=== PATIENT | female | born 1975 | race Caucasian/White ===

== ENCOUNTER 2017-08-26 17:34 | Emergency (ER) | payer OTHER ==
[2017-08-26] MEDS ORDERED: ASPIRIN 81 MG TABLET, CHEWABLE PO ONE (18:15)
--- NOTE | 2017-08-26 18:18 | EKG REPORT ---
SEVERITY:- NORMAL ECG - SINUS RHYTHM : Confirmed by: Emerson Cook MD 26-Aug-2017 18:18:04
--- NOTE | 2017-08-26 18:19 | ER Document Report ---
ED Medical Screen (RME) - General Chief Complaint: Chest Pain Stated Complaint: CHEST PAIN Time Seen by Provider: 08/26/17 18:07 Notes: 42-year-old female here with complaints of chest pain shortness of breath ongoing for the past few days. She states that the shortness of breath is especially worse with exertion. Chest pain is not worse with exertion. She states that she feels like her thyroid is "out of whack". She states that she broke her tailbone a while back and feels like it is broken again and is requesting an x-ray. TRAVEL OUTSIDE OF THE [place] IN LAST 30 DAYS: No - Related Data Allergies/Adverse Reactions: acetaminophen [From Tylenol-Codeine #3] Allergy (Verified 08/26/17 17:35) codeine [From Tylenol-Codeine #3] Allergy (Verified 08/26/17 17:35) tetracycline Allergy (Verified 08/26/17 17:35) Past Medical History - Social History Chew tobacco use (# tins/day): No Frequency of alcohol use: None Drug Abuse: None Renal/ Medical History: Denies: Hx Peritoneal Dialysis Musculoskeltal Medical History: Reports Hx Arthritis Past Surgical History: Reports: Hx Cholecystectomy Physical Exam - Vital signs Vitals: Temp Pulse Resp BP Pulse Ox 98.6 F 86 16 108/61 94 08/26/17 17:54 08/26/17 17:54 08/26/17 17:54 08/26/17 17:54 08/26/17 17:54 Course - Vital Signs Vital signs: Temp Pulse Resp BP Pulse Ox 98.6 F 86 16 108/61 94 08/26/17 17:54 08/26/17 17:54 08/26/17 17:54 08/26/17 17:54 08/26/17 17:54
[2017-08-26 18:53] LABS: ABSOLUTE EOSINOPHILS # (AUTO) 0.1 10^3/uL (0.0-0.6); ABSOLUTE LYMPHOCYTES (AUTO) 1.6 10^3/uL (0.5-4.7); ABSOLUTE MONOCYTES (AUTO) 0.4 10^3/uL (0.1-1.4); ABSOLUTE NEUT (AUTO) 2.7 10^3/uL (1.7-8.2); BASOPHILS % (AUTO) 0.6 % (0-2); EOSINOPHILS % (AUTO) 1.1 % (0-6); HEMATOCRIT 40.2 % (36.0-47.0); HEMOGLOBIN 13.4 g/dL (12.0-15.5); LYMPHOCYTES % (AUTO) 33.5 % (13-45); MEAN CORPUSCULAR HGB CONC 33.3 g/dL (32.0-36.0); MEAN CORPUSCULAR VOLUME 90 fl (80-97); MONOCYTES % (AUTO) 8.8 % (3-13); PLATELET COUNT 298 10^3/uL (150-450); RED BLOOD COUNT 4.47 10^6/uL (3.72-5.28); RED CELL DISTRIBUTION WIDTH 13.8 % (11.5-14.0); TOTAL CELLS COUNTED % (AUTO) 100 %; WHITE BLOOD COUNT 4.8 10^3/uL (4.0-10.5)
[2017-08-26 19:20] LABS: ANION GAP 11 (5-19); BLOOD UREA NITROGEN 10 mg/dL (7-20); CALCIUM 10.2 mg/dL (8.4-10.2); CARBON DIOXIDE 30 mmol/L (22-30); CHLORIDE 100 mmol/L (98-107); GLUCOSE 82 mg/dL (75-110); MAGNESIUM 1.8 mg/dL (1.6-2.3); PHOSPHORUS 4.1 mg/dL (2.5-4.5); POTASSIUM 4.1 mmol/L (3.6-5.0); SODIUM 140.6 mmol/L (137-145)
--- NOTE | 2017-08-26 20:57 | RADIOLOGY REPORT (SQ) ---
EXAM DESCRIPTION: SACRUM AND COCCYX COMPLETED DATE/TIME: 08/26/2017 8:49 pm REASON FOR STUDY: eval for sacral fx COMPARISON: None. NUMBER OF VIEWS: Three views. TECHNIQUE: AP, lateral, and tilt views of the sacrum and coccyx. LIMITATIONS: None. FINDINGS: MINERALIZATION: Normal. BONES: No acute fracture or dislocation. No worrisome bone lesions. SOFT TISSUES: No soft tissue swelling. No foreign body. OTHER: No other significant finding. IMPRESSION: NEGATIVE STUDY OF THE SACRUM AND COCCYX. TECHNICAL DOCUMENTATION: JOB ID: [id number] [employer]- All Rights Reserved
--- NOTE | 2017-08-26 20:57 | RADIOLOGY REPORT (SQ) ---
EXAM DESCRIPTION: CHEST PA/LAT COMPLETED DATE/TIME: 08/26/2017 8:49 pm REASON FOR STUDY: CP SOB COMPARISON: None. EXAM PARAMETERS: NUMBER OF VIEWS: two views TECHNIQUE: Digital Frontal and Lateral radiographic views of the chest acquired. RADIATION DOSE: NA LIMITATIONS: none FINDINGS: LUNGS AND PLEURA: No opacities, masses or pneumothorax. No pleural effusion. MEDIASTINUM AND HILAR STRUCTURES: No masses or contour abnormalities. HEART AND VASCULAR STRUCTURES: Heart normal size. No evidence for failure. BONES: No acute findings. HARDWARE: None in the chest. OTHER: No other significant finding. IMPRESSION: NO SIGNIFICANT RADIOGRAPHIC FINDING IN THE CHEST. TECHNICAL DOCUMENTATION: JOB ID: [id number] [employer]- All Rights Reserved
--- NOTE | 2017-08-26 21:15 | ER Document Report ---
ED General - General Chief Complaint: Chest Pain Stated Complaint: CHEST PAIN Time Seen by Provider: 08/26/17 18:07 TRAVEL OUTSIDE OF THE [place] IN LAST 30 DAYS: No - HPI Notes: Patient is a 42-year-old female with a history of RA, hypothyroid who presents to the ED complaining of episodes of chest pain and shortness of breath on exertion 1 month. Patient states that she also will be sitting there and developed shortness of breath, palpitations, and intermittent sweats. Pt states that the chest pain is worsened when she presses on it, but is not currently there now. Pt states that the COLON/SOB is intermittent and is also not currently present. Patient states that she does take Synthroid, but is not sure of what dose she is on and has not had it checked in a while she says. Patient denies any significant cardiac history. She denies any prolonged immobilization, recent trauma/surgery, previous DVT/PE, smoking, hormone replacement. Denies any headache, fever, head injury, neck pain, changes in vision/speech/mentation/hearing, URI, sore throat, syncope, cough, wheeze, abdominal pain, nausea/vomiting/diarrhea, urinary retention, dysuria, hematuria , loss of control of bowel or bladder, numbness/tingling, muscle paralysis/ weakness, or rash. - Related Data Allergies/Adverse Reactions: acetaminophen [From Tylenol-Codeine #3] Allergy (Verified 08/26/17 17:35) codeine [From Tylenol-Codeine #3] Allergy (Verified 08/26/17 17:35) tetracycline Allergy (Verified 08/26/17 17:35) Past Medical History - Social History Smoking Status: Never Smoker Chew tobacco use (# tins/day): No Frequency of alcohol use: None Drug Abuse: None Family History: Reviewed & Not Pertinent Patient has suicidal ideation: No Patient has homicidal ideation: No Renal/ Medical History: Denies: Hx Peritoneal Dialysis Musculoskeltal Medical History: Reports Hx Arthritis Past Surgical History: Reports: Hx Cholecystectomy Review of Systems - Review of Systems Notes: REVIEW OF SYSTEMS: CONSTITUTIONAL : Denies fever, chills, or sweats. Denies recent illness. EENT: Denies eye, ear, throat, or mouth pain or symptoms. Denies nasal or sinus congestion or discharge. Denies throat, tongue, or mouth swelling or difficulty swallowing. CARDIOVASCULAR: see hpi RESPIRATORY: see hpi. Denies cough, cold, or chest congestion. GASTROINTESTINAL: Denies abdominal pain or distention. Denies nausea, vomiting , or diarrhea. Denies blood in vomitus, stools, or per rectum. Denies black, tarry stools. Denies constipation. GENITOURINARY: Denies difficulty urinating, painful urination, burning, frequency, blood in urine, or discharge. MUSCULOSKELETAL: Denies back or neck pain or stiffness. Denies joint pain or swelling. SKIN: Denies rash, lesions or sores. NEUROLOGICAL: Denies confusion or altered mental status. Denies passing out or loss of consciousness. Denies dizziness or lightheadedness. Denies headache. Denies weakness or paralysis or loss of use of either side. Denies problems with gait or speech. Denies sensory loss, numbness, or tingling. Denies seizures. ALL OTHER SYSTEMS REVIEWED AND NEGATIVE. Dictation was performed using [employer] voice recognition software Physical Exam - Vital signs Vitals: Temp Pulse Resp BP Pulse Ox 98.6 F 86 16 108/61 94 08/26/17 17:54 08/26/17 17:54 08/26/17 17:54 08/26/17 17:54 08/26/17 17:54 Notes: PHYSICAL EXAMINATION: GENERAL: Well-appearing, well-nourished and in no acute distress. I did visualize the patient walk from radiology to her room w/o any distress or increased work in breathing. HEAD: Atraumatic, normocephalic. EYES: Pupils equal round and reactive to light, extraocular movements intact, sclera anicteric, conjunctiva are normal. ENT: EAC clear b/l. TM's intact b/l without erythema, fluid, or perforation. Nares patent and without discharge. oropharynx clear without exudates. No tonsilar hypertrophy or erythema. Moist mucous membranes. No sinus tenderness. NECK: Normal range of motion, supple without lymphadenopathy. No rigidity. Chest: equal rise/fall. No flail chest. + tenderness to palp of the superior chest wall b/l. LUNGS: Breath sounds clear to auscultation bilaterally and equal. No wheezes rales or rhonchi. HEART: Regular rate and rhythm without murmurs, rubs, gallops. ABDOMEN: Soft, nontender, nondistended abdomen. No guarding, no rebound. No masses appreciated. Normal bowel sounds present. No CVA tenderness bilaterally. Musculoskeletal: FROM to passive/active. Strength 5+/5. Ehsan neg. No calf erythema/swelling. Extremities: No cyanosis, clubbing, or edema b/l. Peripheral pulses 2+. Capillary refill less than 3 seconds. NEUROLOGICAL: Cranial nerves grossly intact. Normal speech, normal gait. Normal sensory, motor exams PSYCH: Normal mood, normal affect. SKIN: Warm, Dry, normal turgor, no rashes or lesions noted. Course - Re-evaluation Re-evalutation: 08/26/17 22:[address] Mullins who is in agreement with discharge/plan: Patient is an afebrile, well-hydrated, 42-year-old female who presents the ED with intermittent chest pain, shortness of breath, not otherwise specified. Patient is currently asymptomatic. Vitals are stable however her pulse ox remains around 93-94% on room air. PE is otherwise unremarkable, but did elicit chest wall tenderness. CBC, CMP, cardiac enzymes 1, EKG, chest x-ray, coccyx x-ray were unremarkable for any acute pathology. Patient declined having her blood drawn again for a d-dimer as well as her second troponin. Thoroughly reviewed the risks and benefits of declining these tests and that she will have to sign an AMA sheet. Patient verbalized understanding of the risks and benefits including and she would rather sign the AMA sheet than get 'stuck again.' Patient otherwise has a heart score of less than 3 and a low Wells score. I could not rule out with PERC due to the O2 saturation <95%. Patient's TSH was very low and T4 was slightly elevated. Patient is not sure what medication dose she is on. I advised that she hold her Synthroid until she can call her PCM on Tuesday or Tuesday next week. Continue to monitor symptoms closely. Low suspicion for any ACS, PE, pneumothorax, pericarditis, dissection, respiratory compromise, severe dehydration, sepsis, meningitis, thyroid storm, or other systemic emergent condition at this time. Patient is aware that her condition can change from initial presentation and she needs to monitor symptoms closely and seek medical attention for any acute changes. Recommend conservative measures for symptoms. Recheck with your PCM in 3-5 days. Return to the ED with any worsening/concerning symptoms otherwise as reviewed in discharge. Patient is in agreement. - Vital Signs Vital signs: Temp Pulse Resp BP Pulse Ox 98.6 F 90 16 121/72 93 08/26/17 17:54 08/26/17 22:28 08/26/17 22:28 08/26/17 22:00 08/26/17 22:00 - Laboratory Result Diagrams: 08/26/17 18:35 08/26/17 18:35 Laboratory results interpreted by me: 08/26/17 08/26/17 18:35 18:35 TSH < 0.01 L Free T4 2.66 H Discharge - Discharge Clinical Impression: Shortness of breath, Low TSH level Chest pain, unspecified Qualifiers: Chest pain type: unspecified Qualified Code(s): R07.9 - Chest pain, unspecified Condition: Stable Disposition: HOME, SELF-CARE Instructions: Chest Pain of Unclear Cause ([facility]), Chest Wall Pain ([facility]) Additional Instructions: hold your synthroid(levothyroxine) until you call your PCM early next week* Monitor symptoms closely You declined the D-dimer and 2nd Troponin which helps us evaluate for clotting and heart strain. As reviewed, your risks include as your visit was incomplete today. You need to f/u with your PCM next week* Return to the ED with any worsening symptoms and/or development of fever, headache, chest pain, palpitations, syncope, shortness of breath, trouble breathing, abdominal pain, n/v/d, blood in stool/urine, loss of control of bowel /bladder, urinary retention, muscle weakness/paralysis, numbness/tingling, changes in mentation/behavior, or other worsening symptoms that are concerning to you. Referrals: PEGGY MADDEN MD [ACTIVE STAFF] - Follow up as needed
[2017-08-26 21:41] LABS: FREE T3 3.73 pg/mL (2.77-5.27); FREE T4 (FREE THYROXINE) 2.66 ng/dL (0.78-2.19)
[2017-08-27] MEDS ORDERED: ACETAMINOPHEN 325 MG TABLET PO ONE (00:39)
[2017-08-27 01:00] VITALS: BP 108/61
== END 2017-08-27 00:56 | disposition home or self-care (01) ==
LOC: ER 17:34
DX: R07.9 Chest pain, unspecified (principal); R06.02 Shortness of breath; R94.6 Abnormal results of thyroid function studies; M06.9 Rheumatoid arthritis, unspecified; E03.9 Hypothyroidism, unspecified; R00.2 Palpitations; R61 Generalized hyperhidrosis
CPT/HCPCS: 36415; 71046; 72220; 80048; 83735; 84100; 84439; 84443; 84481; 84484; 84703; 85025; 85379; 93005; 93010; 99285